=== PATIENT | male | born 1950 | race Caucasian/White ===

== ENCOUNTER → 2016-07-07 | Outpatient (CLI) | payer MEDICARE ==
[2016-07-07 09:15] LABS: HEMOGLOBIN 15.5 gm/dl (14.0-17.5); RED BLOOD COUNT 5.07 M/UL (4.20-5.50); WHITE BLOOD COUNT 4.9 K/UL (4.5-11.0)
[2016-07-07 09:40] LABS: BUN/CREATININE RATIO 11 (0-10)
== END ==
LOC: LAB 08:34
PROVIDERS: Family Medicine
DX: R53.83 Other fatigue (principal); R14.0 Abdominal distension (gaseous); R14.2 Eructation; R19.7 Diarrhea, unspecified
CPT/HCPCS: 36415; 80053; 80061; 82272; 84439; 84443; 85027; 87045; 87046

== ENCOUNTER → 2016-08-05 | Outpatient (CLI) | payer MEDICARE | LOC: CT 09:19 | DX: Z00.00 Encounter for general adult medical examination without abnormal findings (principal); Z87.891 Personal history of nicotine dependence; Z13.6 Encounter for screening for cardiovascular disorders; Z13.820 Encounter for screening for osteoporosis; I70.0 Atherosclerosis of aorta; M85.852 Other specified disorders of bone density and structure, left thigh | CPT/HCPCS: 77080; 93979; G0297 ==